=== PATIENT | female | born 1945 | race Caucasian/White ===

== ENCOUNTER → 2018-03-05 11:52 | Outpatient (CLI) | payer MEDICARE, SELFPAY ==
--- NOTE | 2018-03-05 | DI.MG.S_ITS ---
BILATERAL DIGITAL SCREENING MAMMOGRAM 3D/2D WITH CAD: 03/05/2018 CLINICAL: Routine screening. Family history of breast cancer. Comparison is made to exams dated: 04/04/2013 mammogram, 09/05/2011 mammogram, and 08/27/2010 mammogram - [facility]. There are scattered fibroglandular elements in both breasts. Current study was also evaluated with a Computer Aided Detection (CAD) system. There are mole markers on both breasts. No significant masses, calcifications, or other findings are seen in either breast. There has been no significant interval change. IMPRESSION: NEGATIVE There is no mammographic evidence of malignancy. A 1 year screening mammogram is recommended. This exam was interpreted at Station ID: [id number]. NOTE: For mammograms, a report in lay terms will be sent to the patient. Approximately 15% of breast malignancies will not be visualized mammographically. In the management of a palpable breast mass, a negative mammogram must not discourage biopsy of a clinically suspicious lesion. Electronically Signed By: Erick dhillon/[email or web address]:03/05/2018 18:37:34 letter sent: Normal Exam ACR BI-RADS Category 1: Negative 3341F
== END ==
PROVIDERS: Visit Provider Physician Assistant
DX: Z12.31 Encounter for screening mammogram for malignant neoplasm of breast (principal); Z80.3 Family history of malignant neoplasm of breast
CPT/HCPCS: 77063; 77067

== ENCOUNTER 2018-12-11 11:33 | Emergency (ER) | payer MEDICARE, SELFPAY ==
[2018-12-11 11:40] VITALS: BP 175/103; PULSE 66; RESP 18; O2SAT 98; BMI 35.5
--- NOTE | 2018-12-11 12:09 | PC.NURSE ---
Negative Ct scan two days ago. Headache and dizziness worse today.
--- NOTE | 2018-12-11 13:05 | DI.CT.S_ITS ---
PROCEDURE: CT HEAD/BRAIN WO CON INDICATIONS: glf with loc 3 days ago TECHNIQUE: Noncontrast 4.5 mm thick angled axial sections acquired from the foramen magnum to the vertex, with coronal and sagittal reformats. For radiation dose reduction, the following was used: automated exposure control, adjustment of mA and/or kV according to patient size. COMPARISON: None. FINDINGS: Image quality: Excellent. CSF spaces: Basal cisterns are patent. No extra-axial fluid collections. The ventricles are symmetric in size and shape. Brain: No intracranial bleeds or masses. There is cerebral volume loss for age, with resultant ventricular and sulcal prominence. There are periventricular and deep white matter chronic small vessel ischemic changes. Bilateral dilated perivascular spaces, right greater than left. The There is intracranial internal carotid artery atherosclerosis. Skull and face: Small right parietal subgaleal hematoma. Calvarium and visualized facial bones appear intact, without suspicious lesions. Sinuses: Visualized sinuses and mastoids are clear. IMPRESSION: 1. 1. Age related volume loss and mild small vessel ischemic change. 2. No evidence acute stroke, hemorrhage, or mass. Dictated by: Lux Zamora M.D. on 12/11/2018 at 13:10 Approved by: Lux Zamora M.D. on 12/11/2018 at 13:12
--- NOTE | 2018-12-11 13:10 | ED.HEATRA ---
HPI - Head Injury <BOBBY Johnson - Last Filed: 12/11/18 17:59> General Chief complaint: Head Injury Stated complaint: head injury x3 days Time Seen by Provider: 12/11/18 12:40 Source: patient and family Mode of arrival: ambulatory Limitations: no limitations History of Present Illness HPI Narrative: The patient is a 73-year-old female nonsmoker with history of left foot surgery who presents with a chief complaint of a head injury 2 days ago. She states she tripped while going down the stairs, landed mostly on her shoulder but then her head hit cement. She states that she fell down 3-4 stairs. She was accompanied by her son and [id number] when this happened. Her [id number] presents to the emergency department with her today. She states that she was unconscious for 4-5 minutes. She was evaluated at an outside facility, she states she was in a neck brace received a head CT as well as a neck CT. She states everything came back normal. She states she was feeling okay yesterday, but today she complains of severe headache, dizziness, nausea. She is concerned that she might have a small head bleed. She denies any prescription blood thinners, but admits to taking 1 aspirin full strength per day. She states she held yesterday and today. She states she was given a prescription of Zofran, but did not take any at home. Last dose of Tylenol 10:30 a.m.. A modified trauma was activated. Related Data Home Medications Medication Instructions Recorded Confirmed Probiotic 1 cap PO DIRECTED 12/11/18 12/11/18 aspirin 325 mg PO DAILY 12/11/18 12/11/18 clonazepam 1 mg PO BEDTIME 12/11/18 12/11/18 loperamide 10 mg PO DAILY 12/11/18 12/11/18 ondansetron 4 mg PO TID PRN 12/11/18 12/11/18 ropinirole 0.5 mg PO BEDTIME 12/11/18 12/11/18 Allergies Allergy/AdvReac Type Severity Reaction Status Date / Time oxycodone [From OxyContin] Allergy Verified 12/11/18 11:40 Review of Systems <BOBBY Johnson - Last Filed: 12/11/18 17:59> Review of Systems Narrative: GENERAL: Denies chills, fatigue, malaise, fever, sweats. HEENT: Denies sinus pain, ear pain, sore throat, difficulty swallowing, dizziness. RESPIRATORY: Denies dyspnea, cough, wheezing, hemoptysis, sputum. CARDIOVASCULAR: Denies chest pain, palpitations, orthopnea, edema, GASTROINTESTINAL: Denies nausea, vomiting, abdominal pain, diarrhea, constipation, melena. : Denies dysuria, frequency, incontinence, hematuria, urinary retention. MUSCULOSKELETAL: denies weakness, joint pain, or bony pain SKIN: See HPI NEUROLOGIC: See HPI. PSYCHIATRIC: No concerning psychosocial issues. 12 point review of systems is negative except for those stated above Exam <REESE Johnson-BC - Last Filed: 12/11/18 17:59> Narrative Exam Narrative: GENERAL: This is a well-nourished, well-developed patient, in no acute distress HEAD: Atraumatic. Normocephalic. No temporal or scalp tenderness. EYES: Pupils equal round and reactive. Extraocular motions intact. No scleral icterus. No injection or drainage. ENT: Nose without bleeding, purulent drainage or septal hematoma. Throat without erythema, tonsillar hypertrophy or exudate. Uvula midline. Airway patent. NECK: Trachea midline. No JVD or lymphadenopathy. Supple, nontender, no meningeal signs. CARDIOVASCULAR: Regular rate and rhythm without murmurs, gallops, or rubs. RESPIRATORY: Clear to auscultation. Breath sounds equal bilaterally. No wheezes, rales, or rhonchi. GASTROINTESTINAL: Abdomen soft, non-tender, nondistended. No hepato-splenomegaly, or palpable masses. No guarding. EXTREMITIES: Pain to palpation of right knee, pain to palpation left ankle. BACK: Nontender without deformity or crepitance. No flank tenderness. No pain to CT or L-spine palpation. NEURO: AOx3. Strength is equal upper and lower extremities bilaterally. Stable gait. Ambulates steadily with walker. SKIN: Abrasion noted on back of head. Initial Vital Signs Initial Vital Signs: Vital Signs Pulse Rate 66 12/11/18 11:40 Respiratory Rate 18 12/11/18 11:40 Blood Pressure 175/103 H 12/11/18 11:40 Pulse Oximetry 98 12/11/18 11:40 <Angela Stanley DO - Last Filed: 12/11/18 19:20> Initial Vital Signs Initial Vital Signs: Vital Signs Pulse Rate 66 12/11/18 11:40 Respiratory Rate 18 12/11/18 11:40 Blood Pressure 175/103 H 12/11/18 11:40 Pulse Oximetry 98 12/11/18 11:40 Scores <BOBBY Johnson - Last Filed: 12/11/18 17:59> GCS Luke coma scale eye opening: Spontaneous [employer] coma scale verbal response: Orientated [employer] coma scale motor response: Obey commands Luke coma scale total score: 15 Nexus Score for C-Spine Focal Neurologic deficit present: No Midline spinal tenderness present: No Altered level of conciousness present: No Intoxication present: No Distracting Injury Present: No Nexus Criteria for C-spine: 0 Course <BOBBY Johnson - Last Filed: 12/11/18 17:59> Orders Ordered: ED Orders 12/11/18 13:05 CT head/brain wo con Stat Discontinued Medications Acetaminophen (Tylenol) 975 mg PO NOW ONE Stop: 12/11/18 14:19 Last Admin: 12/11/18 14:51 Dose: 975 mg Documented by: LILLIE Ondansetron HCl (Zofran Odt) 4 mg SL NOW ONE Stop: 12/11/18 12:57 Last Admin: 12/11/18 13:13 Dose: 4 mg Documented by: LILLIE Vital Signs Vital signs: Vital Signs - 8 hr 12/11/18 11:40 12/11/18 14:45 Pulse Rate 66 67 Respiratory Rate 18 16 Blood Pressure 175/103 H Blood Pressure [Right Arm] 157/93 H Pulse Oximetry 98 99 <Angela Stanley DO - Last Filed: 12/11/18 19:20> Orders Ordered: ED Orders 12/11/18 13:05 CT head/brain wo con Stat Discontinued Medications Acetaminophen (Tylenol) 975 mg PO NOW ONE Stop: 12/11/18 14:19 Last Admin: 12/11/18 14:51 Dose: 975 mg Documented by: LILLIE Ondansetron HCl (Zofran Odt) 4 mg SL NOW ONE Stop: 12/11/18 12:57 Last Admin: 12/11/18 13:13 Dose: 4 mg Documented by: MONTSERRATSELVINA Vital Signs Vital signs: Vital Signs - 8 hr 12/11/18 11:40 12/11/18 14:45 Pulse Rate 66 67 Respiratory Rate 18 16 Blood Pressure 175/103 H Blood Pressure [Right Arm] 157/93 H Pulse Oximetry 98 99 MDM - Head Injury <BOBBY Johnson - Last Filed: 12/11/18 17:59> Imaging Data CT scan - head: Radiologist's impression: Alma Godoy 73 [address] 1945 [place] [address] CT Scan Report Signed Patient: Alma Godoy LMR#: [id number] : [id number]:[id number] Age/Sex: 73 / FDate of Service: 12/11/18 Loc: ED Accession Number: [id number] Procedure: CT head/brain wo con Ordering Provider: Angela Martinez PROCEDURE: CT HEAD/BRAIN WO CON INDICATIONS: glf with loc 3 days ago TECHNIQUE: Noncontrast 4.5 mm thick angled axial sections acquired from the foramen magnum to the vertex, with coronal and sagittal reformats. For radiation dose reduction, the following was used: automated exposure control, adjustment of mA and/or kV according to patient size. COMPARISON: None. FINDINGS: Image quality: Excellent. CSF spaces: Basal cisterns are patent. No extra-axial fluid collections. The ventricles are symmetric in size and shape. Brain: No intracranial bleeds or masses. There is cerebral volume loss for age, with resultant ventricular and sulcal prominence. There are periventricular and deep white matter chronic small vessel ischemic changes. Bilateral dilated perivascular spaces, right greater than left. The There is intracranial internal carotid artery atherosclerosis. Skull and face: Small right parietal subgaleal hematoma. Calvarium and visualized facial bones appear intact, without suspicious lesions. Sinuses: Visualized sinuses and mastoids are clear. IMPRESSION: 1. 1. Age related volume loss and mild small vessel ischemic change. 2. No evidence acute stroke, hemorrhage, or mass. Dictated by: Lux Zamora M.D. on 12/11/2018 at 13:10 Approved by: Lux Zamora M.D. on 12/11/2018 at 13:12 [facility] Narrative Medical decision making narrative: The patient is a 73-year-old female who presents a few days after falling down 4 stairs. She had a significant loss of conscious, was evaluated in outside facility. I obtained records which illustrated that a head CT was done, CT of her C-spine was done with no acute findings. The patient presents with continued concussion symptoms after she felt better yesterday. I discussed at length the need of brain rest, not playing game, not watching game shows etc. Discussed at length the importance of following up with her PCP. She was given a concussion packet. She does not take blood thinners. She declined any plain films of anything else that hurt such as her knee or her ankle. I encouraged the PCP to come back to the ER for any acute concerns such as concern of chest pain or shortness of breath. She was ambulating steadily throughout the ER with a walker as she does at home. Patient was discharged to home with family with strict instructions to follow up with her PCP and come back to the emergency department for any acute concerns. Discharge Plan Departure Patient Disposition: Home Clinical Impression: Concussion with loss of consciousness Qualifiers: Encounter type: subsequent encounter Qualified Code(s): S06.0X9D - Concussion with loss of consciousness of unspecified duration, subsequent encounter Fall down stairs Qualifiers: Encounter type: subsequent encounter Qualified Code(s): W10.8XXD - Fall (on) (from) other stairs and steps, subsequent encounter Discharge Date/Time: 12/11/18 15:06 Instructions: DI for Concussion, DI for Closed Head Injury, DI for Postconcussion Syndrome Activity Restrictions/Additional Instructions: Today your head CT came back with no acute findings. Please follow up with her PCP in the next few days. Please rest your brain, follow the precautions that we talked about such as decreasing stimulation, not doing things that make her brain work hard etc. Please come back to the emergency department for any acute concerns such as chest pain, shortness of breath, confusion etc Prescriptions: No Action clonazepam 1 mg tablet 1 mg PO BEDTIME RF: 0 ropinirole 0.5 mg tablet 0.5 mg PO BEDTIME RF: 0 ondansetron 4 mg tablet,disintegrating 4 mg PO TID PRN (Reason: Nausea) RF: 0 loperamide 2 mg Capsule 10 mg PO DAILY RF: 0 aspirin 325 mg Tablet 325 mg PO DAILY RF: 0 Probiotic 1 cap PO DIRECTED RF: 0 Referrals: Cornelius Zuniga MD [Primary Care Provider] -
[2018-12-11] MEDS: ONDANSETRON 4 MG ODT SL (13:13)
[2018-12-11 14:45] VITALS: BP 157/93; PULSE 67; RESP 16; O2SAT 99
[2018-12-11] MEDS: ACETAMINOPHEN 325 MG TABLET 975 MG PO (14:51)
== END 2018-12-11 15:06 | disposition home or self-care (01) ==
PROVIDERS: Emergency Provider Nurse Practitioner Family; PCP Internal Medicine
DX: S06.0X9A Concussion with loss of consciousness of unspecified duration, initial encounter (principal); W10.8XXA Fall (on) (from) other stairs and steps, initial encounter
CPT/HCPCS: 70450; 99282; 99284

== ENCOUNTER → 2019-03-08 13:00 | Outpatient (CLI) | payer MEDICARE, SELFPAY | PROVIDERS: PCP Internal Medicine; Visit Provider Internal Medicine | DX: Z78.0 Asymptomatic menopausal state (principal); Z87.891 Personal history of nicotine dependence | CPT/HCPCS: 77080 ==

== ENCOUNTER → 2019-11-05 16:03 | Outpatient (CLI) | payer MEDICARE, SELFPAY ==
--- NOTE | 2019-11-05 | DI.MG.S_ITS ---
BILATERAL DIGITAL SCREENING MAMMOGRAM 3D/2D WITH CAD: 11/05/2019 CLINICAL: Routine screening. Family history of breast cancer. Comparison is made to exams dated: 03/05/2018 mammogram, 04/04/2013 mammogram, and 09/05/2011 mammogram - [facility]. There are scattered fibroglandular elements in both breasts. Current study was also evaluated with a Computer Aided Detection (CAD) system. There are mole markers on both breasts. No significant masses, calcifications, or other findings are seen in either breast. There has been no significant interval change. IMPRESSION: NEGATIVE There is no mammographic evidence of malignancy. A 1 year screening mammogram is recommended. This exam was interpreted at Station ID: [id number]. NOTE: For mammograms, a report in lay terms will be sent to the patient. Approximately 15% of breast malignancies will not be visualized mammographically. In the management of a palpable breast mass, a negative mammogram must not discourage biopsy of a clinically suspicious lesion. Electronically Signed By: Rick Freeman M.D., jr/megha:11/05/2019 16:48:26 letter sent: Normal Exam ACR BI-RADS Category 1: Negative 3341F
== END ==
PROVIDERS: PCP Internal Medicine; Referring Provider Internal Medicine; Visit Provider Internal Medicine
DX: Z12.31 Encounter for screening mammogram for malignant neoplasm of breast (principal); Z80.3 Family history of malignant neoplasm of breast
CPT/HCPCS: 77063; 77067

== ENCOUNTER 2020-04-17 10:54 | Emergency (ER) | payer MEDICARE, SELFPAY ==
[2020-04-17 11:09] VITALS: BP 124/93; PULSE 83; RESP 15; TEMP 36.4; O2SAT 94; BMI 30.7
--- NOTE | 2020-04-17 11:18 | ED.NECK ---
HPI - Neck Pain/Injury <MARYANNE Juarez - Last Filed: 04/17/20 14:23> General Chief Complaint: Neck Pain/Injury Stated Complaint: cannot move neck Time Seen by Provider: 04/17/20 10:56 Mode of arrival: Ambulatory Limitations: no limitations History of Present Illness HPI Narrative: 75yo female with a history of COVID with elevated liver enzymes, and arthritis, presents to the ED for bilateral neck pain. Patient states this started about 3 days ago, has been intermittent. She states it is on both sides of her neck that extends up into her head and is worse when she rotates her head laterally. She states at times it is difficult to move her head up and down. Patient tried using a neck brace and states that it may be the issue worse. She has tried cold and warm packs. Patient denies any trauma, falls, head injury, numbness or tingling, arm weakness, chest pain, nausea, vomiting, diarrhea, vision changes, or any other concerns. Related Data Home Medications Medication Instructions Recorded Confirmed Probiotic 1 cap PO DIRECTED 12/11/18 12/11/18 aspirin 325 mg PO DAILY 12/11/18 12/11/18 clonazepam 1 mg PO BEDTIME 12/11/18 12/11/18 loperamide 10 mg PO DAILY 12/11/18 12/11/18 ondansetron 4 mg PO TID PRN 12/11/18 12/11/18 ropinirole 0.5 mg PO BEDTIME 12/11/18 12/11/18 Previous Rx's Medication Instructions Recorded cyclobenzaprine 10 mg PO TID PRN #20 tab 04/17/20 Allergies Allergy/AdvReac Type Severity Reaction Status Date / Time acetaminophen [From Tylenol] Allergy Verified 04/17/20 11:09 oxycodone [From OxyContin] Allergy Verified 04/17/20 11:09 Review of Systems <MARYANNE Juarez - Last Filed: 04/17/20 14:23> Review of Systems Narrative: REVIEW OF SYSTEMS: GENERAL: Denies fever. HENT: No head trauma. CARDIOVASCULAR: No chest pain. RESPIRATORY: No cough. GASTROINTESTINAL: No nausea or vomiting. MUSCULOSKELETAL: Complains of neck pain, see HPI. INTEGUMENTARY: No rash. NEURO: No numbness, tingling. Patient History <MARYANNE Juarez Last Filed: 04/17/20 14:23> Medical History No significant medical problems Social History Smoking Status: Unknown if ever smoked Smoking Status: Unknown if ever smoked alcohol intake frequency: holidays/special occasions only Substance Use Type: does not use Exam <MARYANNE Juarez - Last Filed: 04/17/20 14:23> Initial Vital Signs Initial Vital Signs: Vital Signs Temperature 97.6 F 04/17/20 11:09 Pulse Rate 83 04/17/20 11:09 Respiratory Rate 15 04/17/20 11:09 Blood Pressure 124/93 H 04/17/20 11:09 Pulse Oximetry 94 04/17/20 11:09 PHYSICAL EXAMINATION: GENERAL: Awake and alert, see HPI. HENT: Normocephalic, atraumatic. EYES: Symmetrical, sclera white, no periorbital swelling. CARDIOVASCULAR: Regular rate. RESPIRATORY: Normal respiratory rate, trachea midline, airway patent. No stridor, nasal flaring or accessory muscle use. MUSCULOSKELETAL: Tenderness to bilateral sternocleidomastoid especially with the insertion point along the skull, decreased lateral rotation due to pain. No tenderness to spinal tenderness, no trapezius tenderness. No erythema, bruising, or lesions. Normal gait and coordination. Equal tone and mass bilaterally. EXTREMITIES: CMS intact. SKIN: Warm, dry, soft, appropriate color for ethnicity. No lesions, rashes, or wounds. NEURO: Alert and Oriented X 3. No sensory deficits. PSYCH: Appropriate affect and mood. <Bro Cross DO - Last Filed: 04/17/20 14:27> Initial Vital Signs Initial Vital Signs: Vital Signs Temperature 97.6 F 04/17/20 11:09 Pulse Rate 83 04/17/20 11:09 Respiratory Rate 15 04/17/20 11:09 Blood Pressure 124/93 H 04/17/20 11:09 Pulse Oximetry 94 04/17/20 11:09 Course <MARYANNE Juarez - Last Filed: 04/17/20 14:23> Course Course Narrative: Patient given valium in the ED at this time. Orders Ordered: Discontinued Medications Diazepam (Diazepam 5 Mg Tablet) 5 mg PO NOW ONE Stop: 04/17/20 11:17 Last Admin: 04/17/20 11:42 Dose: 5 mg Documented by: CVANCE Vital Signs Vital signs: Vital Signs - 8 hr 04/17/20 11:09 04/17/20 11:52 Temperature 97.6 F Pulse Rate 83 Respiratory Rate 15 Blood Pressure 124/93 H 124/63 Pulse Oximetry 94 <Bro Cross DO - Last Filed: 04/17/20 14:27> Orders Ordered: Discontinued Medications Diazepam (Diazepam 5 Mg Tablet) 5 mg PO NOW ONE Stop: 04/17/20 11:17 Last Admin: 04/17/20 11:42 Dose: 5 mg Documented by: CVANCE Vital Signs Vital signs: Vital Signs - 8 hr 04/17/20 11:09 04/17/20 11:52 Temperature 97.6 F Pulse Rate 83 Respiratory Rate 15 Blood Pressure 124/93 H 124/63 Pulse Oximetry 94 MDM - Neck Pain/Injury <MARYANNE Juarez - Last Filed: 04/17/20 14:23> Medical Records Attestation: I reviewed the patient's medical records. Lab Data Attestation: I reviewed the patient's lab results. MDM Narrative Medical decision making narrative: History and examination concerning for muscle spasm given location, tenderness to palpation of the sternocleidomastoid, in worse pain with lateral rotation of head. Less concern for bony involvement given lack of spinal tenderness with palpation in lack of trauma. Patient was given a muscle relaxer to help with pain. She was encouraged to use other nonpharmacological remedies as well such as heat, stretches, and to follow up with her PCP discussed possible need of PT if she continues to have pain. Less concern for any significant neurological involvement due to lack of neurological changes, no numbness or tingling, no loss of bowel or bladder control. Patient was given strict ED return precautions for any new or worsening symptoms. She agreed to plan of care verbalized understanding. Discharge Plan Departure Patient Disposition: Home Clinical Impression: Neck muscle spasm Strain of neck muscle Qualifiers: Encounter type: initial encounter Qualified Code(s): S16.1XXA - Strain of muscle, fascia and tendon at neck level, initial encounter Instructions: DI for Neck Pain Activity Restrictions/Additional Instructions: Thank you for entrusting me with your care today. As discussed, I suspect your pain is most likely caused by muscle spasms. I prescribed you a muscle relaxer, these make you drowsy, do not drive or drink alcohol while taking these medications. Do not take other medications that make you drowsy while taking these. Continue to apply warm compresses, ice, massage, and gentle stretches to the area. Follow-up with your primary care provider in the next 1-2 weeks for further evaluation. Return emergency department for any new or worsening symptoms especially loss of vision, syncope, severe pain, loss of bowel or bladder control, or any other concern starts. Prescriptions: New cyclobenzaprine 10 mg tablet 10 mg PO TID PRN (Reason: muscle spasm) Qty: 20 RF: 0 No Action clonazepam 1 mg tablet 1 mg PO BEDTIME RF: 0 ropinirole 0.5 mg tablet 0.5 mg PO BEDTIME RF: 0 ondansetron 4 mg tablet,disintegrating 4 mg PO TID PRN (Reason: Nausea) RF: 0 loperamide 2 mg Capsule 10 mg PO DAILY RF: 0 aspirin 325 mg Tablet 325 mg PO DAILY RF: 0 Probiotic 1 cap PO DIRECTED RF: 0 Referrals: Cornelius Zuniga MD [Primary Care Provider] - <Bro Cross DO - Last Filed: 04/17/20 14:27> Cosign ED Attending Cosignature Attestation: Dr Cross Co-Sign Statement: I was available for consultation during this patient's emergency department visit. This chart is signed by myself for administrative purposes only. I did not have direct contact with this patient during this visit. They were seen independently by the APC.
[2020-04-17] MEDS: diazePAM 5 MG TABLET PO (11:42)
[2020-04-17 11:52] VITALS: BP 124/63
== END 2020-04-17 11:53 | disposition home or self-care (01) ==
PROVIDERS: Emergency Provider Nurse Practitioner; PCP Internal Medicine
DX: M62.838 Other muscle spasm (principal); S16.1XXA Strain of muscle, fascia and tendon at neck level, initial encounter; Z79.82 Long term (current) use of aspirin
CPT/HCPCS: 99281; 99283

== ENCOUNTER 2020-04-29 19:32 | Emergency (ER) | payer MEDICARE, SELFPAY ==
[2020-04-29 19:37] VITALS: BP 132/94; PULSE 90; RESP 20; TEMP 36.6; O2SAT 97
--- NOTE | 2020-04-29 19:44 | DI.RAD.S_ITS ---
PROCEDURE: XR FINGER LT MIN 2V INDICATIONS: fell and injured left 2nd finger TECHNIQUE: AP hand, 2 views of the 2nd finger(s) acquired. COMPARISON: None. FINDINGS: Bones: There is posterior dislocation of the 2nd finger at the 2nd proximal interphalangeal joint. There is a chip fracture in the dorsal aspect of the base of the 2nd middle phalanx. There is severe degenerative joint disease at the 1st carpometacarpal joint, and moderate degenerative joint disease at the triscaphe joint and the 1st metacarpophalangeal joint. Mild degenerative joint disease of the radiocarpal joint and multiple interphalangeal joints. Soft tissues: No suspicious soft tissue calcifications. IMPRESSION: Fracture dislocation of the 2nd finger at the 2nd proximal interphalangeal joint. Dictated by: Janell Srinivasan M.D. on 04/29/2020 at 20:18 Approved by: Janell Srinivasan M.D. on 04/29/2020 at 20:22
--- NOTE | 2020-04-29 21:10 | ED.UPPEXIN ---
HPI - Extremity Injury (Upper) General Chief Complaint: Extremity Injury, Upper Stated Complaint: FINGER INJURY S/P FALL Time Seen by Provider: 04/29/20 20:52 Source: patient and family Mode of arrival: Ambulatory Limitations: no limitations History of Present Illness HPI narrative: Patient here with daughter. Patient complains of left index finger pain and swelling and deformity. Patient was holding onto a rail with her left hand to prevent herself from falling. Munson pain in her left index finger. Denies any other injuries. Related Data Home Medications Medication Instructions Recorded Confirmed Probiotic 1 cap PO DIRECTED 12/11/18 12/11/18 aspirin 325 mg PO DAILY 12/11/18 12/11/18 clonazepam 1 mg PO BEDTIME 12/11/18 12/11/18 loperamide 10 mg PO DAILY 12/11/18 12/11/18 ondansetron 4 mg PO TID PRN 12/11/18 12/11/18 ropinirole 0.5 mg PO BEDTIME 12/11/18 12/11/18 Previous Rx's Medication Instructions Recorded cyclobenzaprine 10 mg PO TID PRN #20 tab 04/17/20 Allergies Allergy/AdvReac Type Severity Reaction Status Date / Time acetaminophen [From Tylenol] Allergy Verified 04/17/20 11:09 oxycodone [From OxyContin] Allergy Verified 04/17/20 11:09 Review of Systems Review of Systems Narrative: GENERAL: Denies chills, fatigue, malaise, fever, sweats. MUSCULOSKELETAL: Complains muscle or bony pain SKIN: Denies rash, skin lesions NEUROLOGIC: Denies weakness, numbness ROS Unobtainable: All systems reviewed & are unremarkable except as noted in HPI and below Patient History Medical History No significant medical problems Social History Smoking Status: Unknown if ever smoked Smoking Status: Unknown if ever smoked alcohol intake frequency: holidays/special occasions only Substance Use Type: does not use Exam Narrative Exam Narrative: GENERAL: in no distress, not toxic not dyspneic HEAD: Normocephalic. EXTREMITIES: Examination left hand warm soft and pink. There is deformity at the PIP joint of the left index finger. Sensate intact to light touch to the finger. Fingers warm soft and pink. Limited range of motion due to pain and deformity at the PIP joint NEURO: AOx4. SKIN: Warm and dry PSYCH: Not anxious, is cooperative Initial Vital Signs Initial Vital Signs: Vital Signs Temperature 97.9 F 04/29/20 19:37 Pulse Rate 90 04/29/20 19:37 Respiratory Rate 20 04/29/20 19:37 Blood Pressure 132/94 H 04/29/20 19:37 Pulse Oximetry 97 04/29/20 19:37 Procedures Orthopedic Joint Reduction Joint #1: Time Out Performed: Yes Side: left Joint Reduction Location: finger Analgesia: other (Digital block) Local Anesthesia: lidocaine 1% Amount of anesthesic used (mL): 2 Technique used: traction/counter-traction Post-reduction neuro exam: intact Post-reduction vascular: intact Post Reduction X-Ray Obtained: Yes Post Reduction X-Ray Results: reduced Splint Applied: Yes Patient Tolerated Procedure: Well Course Orders Ordered: ED Orders 04/29/20 19:44 XR finger LT min 2V Stat 04/29/20 21:09 XR finger LT min 2V Stat Reevaluation(s) Reevaluation #1: Patient tolerated digital block and reduction well. Time: 21:15 Vital Signs Vital signs: Vital Signs - 8 hr 04/29/20 19:37 04/29/20 21:51 Temperature 97.9 F Pulse Rate 90 89 Respiratory Rate 20 16 Blood Pressure 132/94 H 130/60 Pulse Oximetry 97 99 MDM - Extremity Injury (Upper) Differential Diagnosis Differential diagnosis: Likely dislocation of finger and other (Finger fracture) Imaging Data Extremity x-ray #1: Radiologist's Impression: [address] [id number] ReportSigned Patient: Alma Godoy LMR#: [id number]: [id number]:[id number]/Sex: 75 / FDate of Service: 04/29/20Loc: EDAccession Number: [id number] Procedure: XR finger LT min 2V Ordering Provider: Juan Francisco Rain MD PROCEDURE: XR FINGER LT MIN 2V INDICATIONS: fell and injured left 2nd finger TECHNIQUE: AP hand, 2 views of the 2nd finger(s) acquired. COMPARISON: None. FINDINGS: Bones: There is posterior dislocation of the 2nd finger at the 2nd proximal interphalangeal joint. There is a chip fracture in the dorsal aspect of the base of the 2nd middle phalanx. There is severe degenerative joint disease at the 1st carpometacarpal joint, and moderate degenerative joint disease at the triscaphe joint and the 1st metacarpophalangeal joint. Mild degenerative joint disease of the radiocarpal joint and multiple interphalangeal joints. Soft tissues: No suspicious soft tissue calcifications. IMPRESSION: Fracture dislocation of the 2nd finger at the 2nd proximal interphalangeal joint. Dictated by: Janell Srinivasan M.D. on 04/29/2020 at 20:18 Approved by: Janell Srinivasan M.D. on 04/29/2020 at 20:22 Extremity x-ray #2: Radiologist's Impression: [address] [id number] ReportSigned Patient: Alma Godoy LMR#: [id number]: 1945cct:[id number]/Sex: 75 / FDate of Service: 04/29/20Loc: EDAccession Number: [id number] Procedure: XR finger LT min 2V Ordering Provider: Juan Francisco Rain MD PROCEDURE: XR FINGER LT MIN 2V INDICATIONS: post reduction TECHNIQUE: AP hand, 2 views of the 2nd finger(s) acquired. COMPARISON: [facility], , XR FINGER LT MIN 2V, 04/29/2020, 19:50. FINDINGS: Bones: There is reduction of posterior dislocation of the 2nd finger at the 2nd proximal interphalangeal joint. An avulsion fracture is present at the base of the 2nd middle phalanx. No suspicious bony lesions. Soft tissues: No suspicious soft tissue calcifications. IMPRESSION: 2nd proximal interphalangeal joint dislocation is reduced. An avulsion fracture is present at the base of the 2nd middle phalanx. Dictated by: Janell Srinivasan M.D. on 04/29/2020 at 21:35 Approved by: Janell Srinivasan M.D. on 04/29/2020 at 21:37 Discharge Plan Departure Patient Disposition: Home Clinical Impression: Dislocation closed, finger Qualifiers: Encounter type: initial encounter Qualified Code(s): S63.259A - Unspecified dislocation of unspecified finger, initial encounter Finger fracture, left Qualifiers: Encounter type: initial encounter Finger: index finger Fracture type: closed Phalanx: middle Fracture alignment: nondisplaced Qualified Code(s): S62.651A - Nondisplaced fracture of middle phalanx of left index finger, initial encounter for closed fracture Instructions: DI for Finger Fracture, DI for Finger Dislocation Activity Restrictions/Additional Instructions: Return if worse or if any questions concerns or discoloration of the finger or cold sensation to the finger or any numbness. Call provided orthopedic office tomorrow for office recheck within a week. Use splint until office appointment time. May use Tylenol or ibuprofen for pain. Prescriptions: No Action clonazepam 1 mg tablet 1 mg PO BEDTIME RF: 0 ropinirole 0.5 mg tablet 0.5 mg PO BEDTIME RF: 0 ondansetron 4 mg tablet,disintegrating 4 mg PO TID PRN (Reason: Nausea) RF: 0 loperamide 2 mg Capsule 10 mg PO DAILY RF: 0 aspirin 325 mg Tablet 325 mg PO DAILY RF: 0 Probiotic 1 cap PO DIRECTED RF: 0 cyclobenzaprine 10 mg tablet 10 mg PO TID PRN (Reason: muscle spasm) Qty: 20 RF: 0 Referrals: Chiquita Caballero MD [Physician] - Cornelius Zuniga MD [Primary Care Provider] -
[2020-04-29] MEDS: LIDOCAINE 1% (PF) 4 ML (21:32)
[2020-04-29 21:51] VITALS: BP 130/60; PULSE 89; RESP 16; O2SAT 99
== END 2020-04-29 21:51 | disposition home or self-care (01) ==
PROVIDERS: Emergency Provider Emergency Medicine; PCP Internal Medicine
DX: S62.651A Nondisplaced fracture of middle phalanx of left index finger, initial encounter for closed fracture (principal); X58.XXXA Exposure to other specified factors, initial encounter
CPT/HCPCS: 26742; 29130; 73140; 99283

== ENCOUNTER → 2020-05-06 12:52 | Outpatient (CLI) | payer MEDICARE, SELFPAY ==
--- NOTE | 2020-05-06 | DI.RAD.S_ITS ---
PROCEDURE: XR CERVICAL SPINE 2V OR 3V INDICATIONS: Other spondylosis with radiculopathy, cervical region TECHNIQUE: 3 view(s) of the cervical spine were acquired. COMPARISON: None. FINDINGS: Bones: No fractures or dislocations to the C6-7 level. The lateral masses of C1 appear intact on the odontoid view. No suspicious bony lesions. There is [id number] disc space narrowing at C5-6 and C6-7. Non bridging anterior osteophytes are present. Multilevel uncovertebral arthropathy is present. Soft tissues: No prevertebral soft tissue swelling. IMPRESSION: Degenerative changes most notable at C5-6 and C6-7 as well as uncovertebral arthropathy. It is noted that C7-T1 is not included within the field of view and if this is of concern, repeat views recommended. Dictated by: Carleen Munoz M.D. on 05/06/2020 at 13:57 Approved by: Carleen Munoz M.D. on 05/06/2020 at 13:59
== END ==
PROVIDERS: PCP Internal Medicine; Referring Provider Internal Medicine; Visit Provider Internal Medicine
DX: M47.22 Other spondylosis with radiculopathy, cervical region (principal)
CPT/HCPCS: 72040

== ENCOUNTER → 2021-06-16 11:28 | Outpatient (CLI) | payer MEDICARE, SELFPAY ==
--- NOTE | 2021-06-16 | DI.RAD.S_ITS ---
PROCEDURE: XR CERVICAL SPINE 2V OR 3V INDICATIONS: Lesion of Neck TECHNIQUE: 3 view(s) of the cervical spine were acquired. COMPARISON: [facility], US, US SOFT TISSUE HEAD OR NECK, 06/09/2021, 10:13. [facility], CR, XR CERVICAL SPINE 2V OR 3V, 05/06/2020, 12:57. FINDINGS: Bones: A radiopaque marker has been placed over the right lateral neck, posterior to midline. No identifiable mass corresponds to the marker. No fractures or dislocations to the T1 level. The lateral masses of C1 appear intact on the odontoid view. No suspicious bony lesions. Advanced cervical spondylosis with prominent bilateral cervical facet arthropathy, multilevel anterior osteophytes, and multilevel uncovertebral joint osteophytes. Soft tissues: No prevertebral soft tissue swelling. IMPRESSION: Advanced cervical spondylitic change. No mass identified. Comment: Recommend CT neck with contrast if suspect a soft tissue mass. Dictated by: Lux Zamora M.D. on 06/16/2021 at 12:37 Approved by: Lux Zamora M.D. on 06/16/2021 at 12:40
== END ==
PROVIDERS: PCP Internal Medicine; Referring Provider Internal Medicine; Visit Provider Internal Medicine
DX: L98.9 Disorder of the skin and subcutaneous tissue, unspecified (principal); M47.812 Spondylosis without myelopathy or radiculopathy, cervical region
CPT/HCPCS: 72040

== ENCOUNTER → 2021-08-09 12:58 | Outpatient (CLI) | payer MEDICARE, SELFPAY ==
--- NOTE | 2021-08-09 | DI.MRI.S_ITS ---
PROCEDURE: MR HEAD/BRAIN WO/W CON INDICATIONS: Malignant (primary) neoplasm, Other amnesia TECHNIQUE: Noncontrast axial T1 spin echo, axial T2 fast spin echo, sagittal and axial FLAIR, coronal T2 fast spin echo, axial gradient echo, axial diffusion and ADC through the brain. After the administration of contrast, axial and coronal T1 spin echo with fat saturation through the brain. COMPARISON: None. FINDINGS: Image quality: This examination is limited by involuntary motion artifact. CSF spaces: Basal cisterns are patent. No extra-axial fluid collections. Ventricles are normal in size and shape. Brain: No midline shift. No intracranial bleeds or masses. No abnormal intracranial enhancement. There is cerebral volume loss for age. There is periventricular white matter chronic small vessel ischemic change. The brainstem appears normal. Diffusion-weighted images demonstrate no acute ischemic insults. No chronic ischemic insults. Normal intravascular flow voids are present. Skull and face: Calvarial marrow is normal in signal. Orbits appear normal. Note is made of bilateral lens replacements. Sinuses: Sinuses and mastoids appear clear. IMPRESSION: Unremarkable intracranial study for age, without findings of acute or subacute infarction. Note is made of age-appropriate brain parenchymal volume loss and chronic small vessel ischemic changes. No masses or abnormal enhancement can be seen. Dictated by: Nacho Valle M.D. on 08/09/2021 at 14:12 Approved by: Nacho Valle M.D. on 08/09/2021 at 14:14
== END ==
PROVIDERS: PCP Internal Medicine; Referring Provider Obstetrics & Gynecology Gynecologic Oncology; Visit Provider Obstetrics & Gynecology Gynecologic Oncology
DX: R41.3 Other amnesia (principal); C80.1 Malignant (primary) neoplasm, unspecified
CPT/HCPCS: 70553; A9579

== ENCOUNTER 2021-09-05 10:19 | Emergency (ER) | payer MEDICARE, SELFPAY ==
[2021-09-05] VITALS (14 sets, daily range): BP systolic 99–127; BP diastolic 56–71; PULSE 67–87; RESP 15–24; TEMP 36.6; O2SAT 95–99; BMI 25.8
--- NOTE | 2021-09-05 10:30 | ED.SYNCOPE ---
HPI - Syncope General Chief Complaint: Syncope Stated Complaint: syncope Time Seen by Provider: 09/05/21 10:22 Source: patient and EMS Mode of arrival: EMS Limitations: no limitations History of Present Illness HPI narrative: This is a 76-year-old female with known uterine cancer who initiated chemotherapy last week on the 02 of September. Patient states she takes medication for restless leg denies other medical issues no diabetes, hypertension dyslipidemia. Today she was sitting in her chair she felt unwell she had a syncopal episode for several minutes which her daughter witnessed. Pressure was 60 in the field and has improved to 90 with fluids and route. Patient states she has a mild headache, she denies chest pain or pressure, no shortness of breath. She has had some persistent abdominal pain particularly on the right side that is started after she initiated chemotherapy and some bilateral back cramping discomfort. She denies any vomiting but has had some nausea. She has not had any black or bloody stools but has had diarrhea intermittently. She states she does have IBS. She denies any vaginal bleeding. No dysuria, urgency frequency or hematuria. She has had orthopedic surgeries but besides having a port placed denies any thoracic or abdominal pain. Patient is allergic to oxycodone she gets very nauseated and vomits but states she can take Tylenol with codeine. Denies tobacco, alcohol or illicit. Her primary care is Dr. Burrows. She is receiving her chemotherapy treatments at [facility] and her care is at the [facility]. Related Data Home Medications Medication Instructions Recorded Confirmed Probiotic 1 cap PO DIRECTED 12/11/18 12/11/18 aspirin 325 mg tablet 325 mg PO DAILY 12/11/18 12/11/18 clonazepam 1 mg tablet 1 mg PO BEDTIME 12/11/18 12/11/18 loperamide 2 mg capsule 10 mg PO DAILY 12/11/18 12/11/18 ondansetron 4 mg disintegrating 4 mg PO TID PRN Nausea 12/11/18 12/11/18 tablet ropinirole 0.5 mg tablet 0.5 mg PO BEDTIME 12/11/18 12/11/18 Previous Rx's Medication Instructions Recorded cyclobenzaprine 10 mg tablet 10 mg PO TID PRN muscle spasm #20 04/17/20 tabs acetaminophen 300 mg-codeine 30 mg 1 tab PO Q6H PRN pain #14 tabs 09/05/21 tablet Allergies Allergy/AdvReac Type Severity Reaction Status Date / Time acetaminophen [From Tylenol] Allergy Verified 04/17/20 11:09 oxycodone [From OxyContin] Allergy Verified 04/17/20 11:09 Review of Systems Review of Systems ROS Unobtainable: All systems reviewed & are unremarkable except as noted in HPI and below Patient History Medical History No significant medical problems Social History Smoking Status: Unknown if ever smoked Smoking Status: Unknown if ever smoked alcohol intake frequency: holidays/special occasions only Substance Use Type: does not use Exam Narrative Exam Narrative: GEN: Elderly appearing female, alert and oriented x 3, patient appears to be in mild distress. HEENT: Atraumatic, pupils are equal round reactive to light, extraocular movements are intact, nares are clear. Throat is clear without any exudates, erythema, tonsillar enlargement or uvular deviation, no facial droop HEART: Regular rate and rhythm without murmur, clicks, rubs. Pulses are equal in upper and lower extremities LUNGS:Lungs clear to auscultation, no wheezes, rales, crackles, chest moves symmetrically, no tachypnea accessory muscle use. ABD:bowel sounds normal, soft, patient is tender in the lower abdomen right greater than left, nondistended, no guarding, rebound, rigidity, no masses noted, no hepatosplenomegaly :No CVA tenderness MSCL: Non-tender, no muscle atrophy, muscles strength 5/5 upper and lower extremities, full range of motion NEURO:CN 2-12 intact, sensation normal SKIN: No rash, erythema or skin changes noted Initial Vital Signs Initial Vital Signs: Vital Signs Temperature 98 F 09/05/21 10:13 Pulse Rate 70 09/05/21 10:13 Respiratory Rate 18 09/05/21 10:13 Blood Pressure 127/56 L 09/05/21 10:13 Pulse Oximetry 97 09/05/21 10:13 Oxygen Delivery Method 09/05/21 10:13 Course Orders Ordered: Discontinued Medications Acetaminophen/Codeine Phosphate (Codeine/Acetaminophen 30/300 Tablet) 1 tab PO NOW ONE Stop: 09/05/21 10:39 Last Admin: 09/05/21 10:47 Dose: 1 tab Documented By: MONTSERRAT Sodium Chloride (Normal Saline 0.9%) 1,000 mls @ 150 mls/hr IV CONT JAI Last Infusion: 09/05/21 13:44 Dose: 0 mls/hr Documented By: Admin: 09/05/21 10:48 Dose: 150 mls/hr Documented By: MONTSERRAT Vital Signs Vital signs: Vital Signs - 8 hr 09/05/21 10:13 09/05/21 10:23 09/05/21 10:31 Temperature 98 F Pulse Rate 70 67 Respiratory Rate 18 Blood Pressure 127/56 L 112/65 Pulse Oximetry 97 98 Oxygen Delivery Method Room Air 09/05/21 10:32 09/05/21 10:32 09/05/21 11:24 Temperature Pulse Rate 68 70 Respiratory Rate 20 Blood Pressure 127/56 L Pulse Oximetry 97 95 Oxygen Delivery Method 09/05/21 11:30 09/05/21 11:31 09/05/21 11:31 Temperature Pulse Rate 71 71 Respiratory Rate 20 20 Blood Pressure 110/62 Pulse Oximetry 99 99 Oxygen Delivery Method 09/05/21 11:54 09/05/21 11:54 09/05/21 12:00 Temperature Pulse Rate 73 Respiratory Rate 18 Blood Pressure 113/63 114/59 L Pulse Oximetry 97 Oxygen Delivery Method 09/05/21 12:00 09/05/21 12:30 09/05/21 12:30 Temperature Pulse Rate 70 68 Respiratory Rate 17 15 Blood Pressure 99/56 L Pulse Oximetry 98 97 Oxygen Delivery Method 09/05/21 12:53 Temperature Pulse Rate Respiratory Rate Blood Pressure 113/60 Pulse Oximetry Oxygen Delivery Method MDM - Syncope Lab Data Result diagrams: 09/05/21 10:25 09/05/21 10:25 Labs: Lab Results 09/05/21 09/05/21 09/05/21 Range/Units 10:25 10:25 10:25 WBC 4.9 (4.5-11.0) X10^3/uL RBC 3.91 L (4.0-5.2) X10^6/uL Hgb 12.5 (12.0-16.0) g/dL Hct 37.3 (36-46) % MCV 95.4 (80-100) fL MCH 31.9 (26-34) PG MCHC 33.5 (30-36) % RDW 15.9 H (11.6-14.8) % Plt Count 140 L (150-400) X10^3/uL Neut % (Auto) 81.8 H (50-75) % Lymph % (Auto) 14.6 L (25-40) % Villalba % (Auto) 1.3 L (3-14) % Eos % (Auto) 2.1 (2-4) % Baso % (Auto) 0.2 (0-2) % Neut # (Auto) 4000 (5345-4533) /uL Lymph # (Auto) 700 L (4686-8658) /uL Villalba # (Auto) 100 (0-900) /uL Eos # (Auto) 100 (0-450) /uL Baso # (Auto) 0 (0-100) /uL PT 10.7 (10.1-12.7) SECONDS INR 1.0 (0.9-1.3) APTT 22 L (26.4-36.2) SECONDS Sodium 133 L (137-145) mmol/L Potassium 4.8 (3.4-5.1) mmol/L Chloride 102 (98-107) mmol/L Carbon Dioxide 28 (22-32) mmol/L BUN 27 H (7-17) mg/dL Creatinine 0.77 (0.52-1.04) mg/dL Estimated GFR > 60 (>60) mL/min BUN/Creatinine Ratio 35.1 H (6-22) Glucose 105 (80-110) mg/dL Calcium 8.2 L (8.4-10.2) mg/dL Magnesium (1.6-2.3) mg/dL Total Bilirubin 0.7 (0.2-1.3) mg/dL AST 25 (14-36) IU/L ALT 16 (<35) IU/L Alkaline Phosphatase 49 (38-126) U/L Total Creatine Kinase 43 (30-135) U/L CK-MB (CK-2) TNP CK-MB (CK-2) Rel Index TNP Troponin I < 0.012 (0.01-0.034) ng/mL NT-Pro-B Natriuret Pep 147 (<450) pg/mL Total Protein 5.7 L (6.3-8.2) g/dL Albumin 3.1 L (3.5-5.0) g/dL Globulin 2.6 (1.7-4.1) g/dL Albumin/Globulin Ratio 1.2 (1.0-2.8) Lipase 18 L (23-300) U/L Urine Color Urine Appearance Urine pH (4.5-8.0) Ur Specific [place] (1.000-1.035) Urine Protein (Negative) Urine Glucose (UA) (Negative) g/dL Urine Ketones (NEGATIVE) Urine Occult Blood (Negative) Urine Nitrate (Negative) Urine Bilirubin (NEGATIVE) Urine Urobilinogen (0.2) E.U./dL Ur Leukocyte Esterase (NEGATIVE) Urine RBC (0-5/HPF) Urine WBC (0-5/HPF) Ur Squamous Epith Cells (0-5/HPF) Urine Bacteria (None) Ur Culture Indicated? SARS-CoV-2 (PCR) (Negative) Blood Type Antibody Screen 09/05/21 09/05/21 09/05/21 Range/Units 10:25 10:28 10:50 WBC (4.5-11.0) X10^3/uL RBC (4.0-5.2) X10^6/uL Hgb (12.0-16.0) g/dL Hct (36-46) % MCV (80-100) fL MCH (26-34) PG MCHC (30-36) % RDW (11.6-14.8) % Plt Count (150-400) X10^3/uL Neut % (Auto) (50-75) % Lymph % (Auto) (25-40) % Villalba % (Auto) (3-14) % Eos % (Auto) (2-4) % Baso % (Auto) (0-2) % Neut # (Auto) (5543-9367) /uL Lymph # (Auto) (8828-3310) /uL Villalba # (Auto) (0-900) /uL Eos # (Auto) (0-450) /uL Baso # (Auto) (0-100) /uL PT (10.1-12.7) SECONDS INR (0.9-1.3) APTT (26.4-36.2) SECONDS Sodium (137-145) mmol/L Potassium (3.4-5.1) mmol/L Chloride (98-107) mmol/L Carbon Dioxide (22-32) mmol/L BUN (7-17) mg/dL Creatinine (0.52-1.04) mg/dL Estimated GFR (>60) mL/min BUN/Creatinine Ratio (6-22) Glucose (80-110) mg/dL Calcium (8.4-10.2) mg/dL Magnesium 2.1 (1.6-2.3) mg/dL Total Bilirubin (0.2-1.3) mg/dL AST (14-36) IU/L ALT (<35) IU/L Alkaline Phosphatase (38-126) U/L Total Creatine Kinase (30-135) U/L CK-MB (CK-2) CK-MB (CK-2) Rel Index Troponin I (0.01-0.034) ng/mL NT-Pro-B Natriuret Pep (<450) pg/mL Total Protein (6.3-8.2) g/dL Albumin (3.5-5.0) g/dL Globulin (1.7-4.1) g/dL Albumin/Globulin Ratio (1.0-2.8) Lipase (23-300) U/L Urine Color Yellow Urine Appearance Clear Urine pH 7.0 (4.5-8.0) Ur Specific [place] 1.010 (1.000-1.035) Urine Protein Trace H (Negative) Urine Glucose (UA) Negative (Negative) g/dL Urine Ketones Negative (NEGATIVE) Urine Occult Blood Trace-intact (Negative) Urine Nitrate Negative (Negative) Urine Bilirubin Negative (NEGATIVE) Urine Urobilinogen 0.2 (0.2) E.U./dL Ur Leukocyte Esterase 1+ H (NEGATIVE) Urine RBC 0-1/hpf (0-5/HPF) Urine WBC 5-10/hpf H (0-5/HPF) Ur Squamous Epith Cells 10-30 /hpf H (0-5/HPF) Urine Bacteria Moderate (10-30) H (None) Ur Culture Indicated? Cult not indicated SARS-CoV-2 (PCR) Negative (Negative) Blood Type Antibody Screen 09/05/21 09/05/21 Range/Units 11:35 12:44 WBC (4.5-11.0) X10^3/uL RBC (4.0-5.2) X10^6/uL Hgb (12.0-16.0) g/dL Hct (36-46) % MCV (80-100) fL MCH (26-34) PG MCHC (30-36) % RDW (11.6-14.8) % Plt Count (150-400) X10^3/uL Neut % (Auto) (50-75) % Lymph % (Auto) (25-40) % Villalba % (Auto) (3-14) % Eos % (Auto) (2-4) % Baso % (Auto) (0-2) % Neut # (Auto) (0507-9508) /uL Lymph # (Auto) (5406-5854) /uL Villalba # (Auto) (0-900) /uL Eos # (Auto) (0-450) /uL Baso # (Auto) (0-100) /uL PT (10.1-12.7) SECONDS INR (0.9-1.3) APTT (26.4-36.2) SECONDS Sodium (137-145) mmol/L Potassium (3.4-5.1) mmol/L Chloride (98-107) mmol/L Carbon Dioxide (22-32) mmol/L BUN (7-17) mg/dL Creatinine (0.52-1.04) mg/dL Estimated GFR (>60) mL/min BUN/Creatinine Ratio (6-22) Glucose (80-110) mg/dL Calcium (8.4-10.2) mg/dL Magnesium (1.6-2.3) mg/dL Total Bilirubin (0.2-1.3) mg/dL AST (14-36) IU/L ALT (<35) IU/L Alkaline Phosphatase (38-126) U/L Total Creatine Kinase (30-135) U/L CK-MB (CK-2) CK-MB (CK-2) Rel Index Troponin I 0.016 (0.01-0.034) ng/mL NT-Pro-B Natriuret Pep (<450) pg/mL Total Protein (6.3-8.2) g/dL Albumin (3.5-5.0) g/dL Globulin (1.7-4.1) g/dL Albumin/Globulin Ratio (1.0-2.8) Lipase (23-300) U/L Urine Color Urine Appearance Urine pH (4.5-8.0) Ur Specific [place] (1.000-1.035) Urine Protein (Negative) Urine Glucose (UA) (Negative) g/dL Urine Ketones (NEGATIVE) Urine Occult Blood (Negative) Urine Nitrate (Negative) Urine Bilirubin (NEGATIVE) Urine Urobilinogen (0.2) E.U./dL Ur Leukocyte Esterase (NEGATIVE) Urine RBC (0-5/HPF) Urine WBC (0-5/HPF) Ur Squamous Epith Cells (0-5/HPF) Urine Bacteria (None) Ur Culture Indicated? SARS-CoV-2 (PCR) (Negative) Blood Type O Positive Antibody Screen Negative Urine Dip Bedside Urine Glucose Negative Bedside Urine Bilirubin - Negative Bedside Urine Ketone - Negative Urine Specific [place] 1.015 Bedside Urine Occult Blood - Negative Bedside Urine pH 6.0 Bedside Urine Protein - Negative Bedside Urine Urobilinogen 0.2 Bedside Urine Nitrite - Negative Bedside Urine Leukocytes - Negative Esterase Imaging Data Chest x-ray: Radiologist's Impression: [address] [address] XRay Report Signed Patient: Alma Godoy MR#: [id number] : 1945 Acct:[id number] Age/Sex: 76 / F Date of Service: 09/05/21 Loc: ED Accession Number: [id number] ?? Procedure: XR chest 1V Ordering Provider: Angela Stanley D.O. PROCEDURE:? XR CHEST 1V ? INDICATIONS:? syncope, abd pain ? TECHNIQUE:? One view of the chest was acquired.? ? COMPARISON:? [facility], CT, CT ABDOMEN PELVIS W CON, 09/05/2021, 11:10.? [facility], CR, CHEST 2 VIEW, 09/19/2014, 11:39. ? FINDINGS:? ? Surgical changes and devices:? A right-sided chest port is seen, with the tip seen overlying the mid aspect of the superior vena cava, 4-5 cm above the cavoatrial junction. ?Cholecystectomy clips are seen.? ? Lungs and pleura:? Lungs are clear.? No pleural effusions or pneumothorax.? ? Mediastinum:? The cardiac contours are within normal limits. The aorta demonstrates calcification and tortuosity. ? Bones and chest wall:? No suspicious bony lesions.? Age-appropriate bony degenerative changes are seen.? ? Overlying soft tissues appear unremarkable.? ? ? IMPRESSION:? ? Clear lungs. ? Postoperative and degenerative changes are seen.? ? ? Dictated by: Nacho Valle M.D. on 09/05/2021 at 10:19 ? ? Approved by: Nacho Valle M.D. on 09/05/2021 at 10:20? CT scan - abdomen/pelvis: Radiologist's Impression: [address] [address] [address] Scan Report Signed Patient: Alma Godoy MR#: [id number] : 1945 Acct:[id number] Age/Sex: 76 / F Date of Service: 09/05/21 Loc: ED Accession Number: [id number] ?? Procedure: CT abdomen pelvis w con Ordering Provider: Angela Stanley D.O. PROCEDURE:? CT ABDOMEN PELVIS W CON ? INDICATIONS:? syncope, uterine cancer, abd pain ? TECHNIQUE:? After the administration of oral and IV contrast, axial sections were acquired from the lung bases to the pubic symphysis.? Coronal and sagittal reformats were performed.? For radiation dose reduction, the following was used:? automated exposure control, adjustment of mA and/or kV according to patient size. ? COMPARISON:? Chest radiograph 09/05/2021. ? FINDINGS:? Image quality:? There is artifact associated with the metallic hardware. ? Artifact from the metallic hardware is reduced by metal reconstruction algorithm.? ? Lung bases:? Unremarkable.? ? Heart:? No significant findings. ? ? ABDOMEN: Liver:? Unremarkable.? ? Gallbladder:? Removed.? ? Biliary ducts:? Intrahepatic biliary ductal dilatation is seen.? The common bile duct is dilated to 19 mm. Pancreas:? Unremarkable.? ? Spleen:? Unremarkable.? ? Adrenal Glands:? Unremarkable.? ? Kidneys and Ureters:? At the medial superior aspect of the left kidney, there is a moderate density 2.8 cm cyst. ? Stomach and Bowel:? Stomach, small bowel loops, and colon are unremarkable.? There is a moderate amount of stool seen within the colon. Peritoneum:? No abnormal intraperitoneal fluid.? No free air.? ? Ventral Wall: ? No hernia.? Abdominal Nodes:? No retroperitoneal or mesenteric adenopathy by size criteria.? Vessels:? Aorta and inferior vena cava are normal in size.? Atherosclerotic calcification is noted.? ? PELVIS: Pelvic Organs:? A 2 cm area of low density can be seen along the central uterine cavity.? No adnexal masses are seen on either side.? Bladder:? Unremarkable.? ? Pelvic Nodes: No enlarged lymph nodes.? Miscellaneous:? Enlarged right inguinal lymph nodes are seen, with the largest lymph node measuring 2 x 1.2 cm. ? Bones:? Left hip arthroplasty hardware is seen.? Remote bone fragments are seen adjacent to the left greater trochanter.? At least moderate degenerative changes are seen throughout. ? ? IMPRESSION:? ? There is a moderate amount of stool seen within the colon. Please correlate with an underlying history of constipation.? ? A 2 cm region of low density can be seen along the central uterus, which is consistent with the given history of renal cancer. ? Mildly enlarged right inguinal lymph nodes are seen. ? Cholecystectomy, with abnormal biliary dilatation, with the common bile duct measuring up to 19 mm. ? If clinically appropriate, an MRCP could be considered for further evaluation (assuming that there is no contraindication to MRI). ? ? ? Incidental note is made of: Simple left renal cyst Left hip arthroplasty hardware ? Dictated by: Nacho Valle M.D. on 09/05/2021 at 10:20 ? ? Approved by: Nacho Valle M.D. on 09/05/2021 at 10:26? ECG Data Attestation: I personally reviewed and interpreted this ECG as follows: Prior ECG tracings: available for review Interpretation: Sinus rhythm, left bundle-branch block. Rate of 65, NH 160, QRS of 132, QTC 465. Patient has prior from 09/03/[address] changes appreciated. EKG 2. Shows a sinus rhythm rate of 70 NH 158 QRS of 122 and QTC of 466. Left bundle branch block which is noted on prior today with no acute ST changes in the department. MDM Narrative Medical decision making narrative: This is a 76 year old female with complaint of syncope patient was hypotensive in the field responded well to fluids. Here in the emergency department no clear acute cause is found platelets are slightly low, she is not anemic, no signs of sepsis or infection. Patient has a mildly elevated BUN but no alterations to her creatinine, sodium is 133 with otherwise normal electrolytes. Normal glucose in the field and here. Troponin is negative and 0.016 on repeat. No acute EKG changes, no chest pain or shortness of breath or other cardiac causes found no arrhythmias in the department. COVID swab is negative. Patient does have some abdominal pain, with her known history of cancer CT imaging was obtained shows some stool, renal cyst which is shared with the family but likely already being monitored by her oncology team and changes to the uterus. Patient continues to be stable the department she has ambulated multiple times without issue. Discharged home with return precautions. She has noted she has been quite constipated so will add a stool softener and she has been had significant improvement of her pain with Tylenol 3 so was given short-term prescription for this. Discharge Plan Departure Patient Disposition: Home Clinical Impression: Syncope, Cyst of left kidney, Common bile duct dilatation Instructions: DI for Syncope in Adults (Fainting) Activity Restrictions/Additional Instructions: Follow-up with your physician for recheck. I did not find a clear cause for your episode of passing out today. Your blood pressure was quite low in the field with EMS but significantly improved with fluids. Your labs, EKG and imaging today did not show a clear cause your imaging does show a renal cyst your oncology team is likely aware of this but please share this information, they also found changes that are not unexpected at the uterus. Make sure to continue to hydrate regularly at home. You may take Tylenol with codeine every 6-8 hours as needed. This medication can make you sleepy do not drive, perform hazardous activities or make any major decisions while taking it. This medication will make you constipated please take a stool softener such as Colace once to twice daily until stools are soft and regular. Prescription sent to [facility] in [place]. Please return for fevers, passing out, severe headaches, new chest pain, shortness of breath, persistent vomiting, black or bloody stools or other new or concerning symptoms. Prescriptions: New acetaminophen-codeine 300-30 mg tablet 1 tab PO Q6H PRN (Reason: pain) Qty: 14 0RF No Action clonazepam 1 mg tablet 1 mg PO BEDTIME ropinirole 0.5 mg tablet 0.5 mg PO BEDTIME ondansetron 4 mg tablet,disintegrating 4 mg PO TID PRN (Reason: Nausea) loperamide 2 mg Capsule 10 mg PO DAILY aspirin 325 mg Tablet 325 mg PO DAILY Probiotic 1 cap PO DIRECTED cyclobenzaprine 10 mg tablet 10 mg PO TID PRN (Reason: muscle spasm) Qty: 20 0RF Referrals: Victor Hugo Burrows MD [Primary Care Provider] - Visit Report Forms: Patient Portal/API
--- NOTE | 2021-09-05 10:36 | DI.RAD.S_ITS ---
PROCEDURE: XR CHEST 1V INDICATIONS: syncope, abd pain TECHNIQUE: One view of the chest was acquired. COMPARISON: [facility], CT, CT ABDOMEN PELVIS W CON, 09/05/2021, 11:10. [facility], CR, CHEST 2 VIEW, 09/19/2014, 11:39. FINDINGS: Surgical changes and devices: A right-sided chest port is seen, with the tip seen overlying the mid aspect of the superior vena cava, 4-5 cm above the cavoatrial junction. Cholecystectomy clips are seen. Lungs and pleura: Lungs are clear. No pleural effusions or pneumothorax. Mediastinum: The cardiac contours are within normal limits. The aorta demonstrates calcification and tortuosity. Bones and chest wall: No suspicious bony lesions. Age-appropriate bony degenerative changes are seen. Overlying soft tissues appear unremarkable. IMPRESSION: Clear lungs. Postoperative and degenerative changes are seen. Dictated by: Nacho Valle M.D. on 09/05/2021 at 10:19 Approved by: Nacho Valle M.D. on 09/05/2021 at 10:20
--- NOTE | 2021-09-05 10:36 | DI.CT.S_ITS ---
PROCEDURE: CT ABDOMEN PELVIS W CON INDICATIONS: syncope, uterine cancer, abd pain TECHNIQUE: After the administration of oral and IV contrast, axial sections were acquired from the lung bases to the pubic symphysis. Coronal and sagittal reformats were performed. For radiation dose reduction, the following was used: automated exposure control, adjustment of mA and/or kV according to patient size. COMPARISON: Chest radiograph 09/05/2021. FINDINGS: Image quality: There is artifact associated with the metallic hardware. Artifact from the metallic hardware is reduced by metal reconstruction algorithm. Lung bases: Unremarkable. Heart: No significant findings. ABDOMEN: Liver: Unremarkable. Gallbladder: Removed. Biliary ducts: Intrahepatic biliary ductal dilatation is seen. The common bile duct is dilated to 19 mm. Pancreas: Unremarkable. Spleen: Unremarkable. Adrenal Glands: Unremarkable. Kidneys and Ureters: At the medial superior aspect of the left kidney, there is a moderate density 2.8 cm cyst. Stomach and Bowel: Stomach, small bowel loops, and colon are unremarkable. There is a moderate amount of stool seen within the colon. Peritoneum: No abnormal intraperitoneal fluid. No free air. Ventral Wall: No hernia. Abdominal Nodes: No retroperitoneal or mesenteric adenopathy by size criteria. Vessels: Aorta and inferior vena cava are normal in size. Atherosclerotic calcification is noted. PELVIS: Pelvic Organs: A 2 cm area of low density can be seen along the central uterine cavity. No adnexal masses are seen on either side. Bladder: Unremarkable. Pelvic Nodes: No enlarged lymph nodes. Miscellaneous: Enlarged right inguinal lymph nodes are seen, with the largest lymph node measuring 2 x 1.2 cm. Bones: Left hip arthroplasty hardware is seen. Remote bone fragments are seen adjacent to the left greater trochanter. At least moderate degenerative changes are seen throughout. IMPRESSION: There is a moderate amount of stool seen within the colon. Please correlate with an underlying history of constipation. A 2 cm region of low density can be seen along the central uterus, which is consistent with the given history of renal cancer. Mildly enlarged right inguinal lymph nodes are seen. Cholecystectomy, with abnormal biliary dilatation, with the common bile duct measuring up to 19 mm. If clinically appropriate, an MRCP could be considered for further evaluation (assuming that there is no contraindication to MRI). Incidental note is made of: Simple left renal cyst Left hip arthroplasty hardware Dictated by: Nacho Valle M.D. on 09/05/2021 at 10:20 Approved by: Nacho Valle M.D. on 09/05/2021 at 10:26
[2021-09-05 10:45] LABS: Prothrombin Time 10.7 SECONDS (10.1-12.7)
[2021-09-05] MEDS: CODEINE/ACETAMINOPHEN 30/300 TABLET 1 TAB PO (10:47)
[2021-09-05 10:48] LABS: Add Manual Diff / Slide Review NO; Basophils Absolute Auto 0 /uL (0-100); Basophils Percent Auto 0.2 % (0-2); Eosinophils Absolute Auto 100 /uL (0-450); Eosinophils Percent Auto 2.1 % (2-4); Hematocrit 37.3 % (36-46); Hemoglobin 12.5 g/dL (12.0-16.0); Lymphocytes Absolute Auto 700 /uL (1100-4500); Lymphocytes Percent Auto 14.6 % (25-40); Mean Corpuscular HGB Conc 33.5 % (30-36); Mean Corpuscular Hemoglobin 31.9 PG (26-34); Mean Corpuscular Volume 95.4 fL (80-100); Monocytes Absolute Auto 100 /uL (0-900); Monocytes Percent Auto 1.3 % (3-14); Neutrophils Absolute Auto 4000 /uL (1500-7000); Neutrophils Percent Auto 81.8 % (50-75); PTT Partial Thromboplastin Tim 22 SECONDS (26.4-36.2); Platelet Count 140 X10^3/uL (150-400); Red Blood Cell Count 3.91 X10^6/uL (4.0-5.2); Red Cell Distribution Width 15.9 % (11.6-14.8); White Blood Cell Count 4.9 X10^3/uL (4.5-11.0)
[2021-09-05] MEDS: SODIUM CHLORIDE 0.9% 1,000 ML 150 ML IV (10:48)
[2021-09-05 10:52] LABS: Alanine Aminotransferase 16 IU/L (<35); Albumin 3.1 g/dL (3.5-5.0); Albumin Globulin Ratio 1.2 (1.0-2.8); Alkaline Phosphatase 49 U/L (38-126); Aspartate Aminotransferase 25 IU/L (14-36); BUN Creatinine Ratio 35.1 (6-22); Bilirubin Total 0.7 mg/dL (0.2-1.3); Blood Urea Nitrogen 27 mg/dL (7-17); Calcium 8.2 mg/dL (8.4-10.2); Carbon Dioxide 28 mmol/L (22-32); Chloride 102 mmol/L (98-107); Creatine Kinase 43 U/L (30-135); Estimated Glomerular Filt Rate > 60 mL/min (>60); Globulin 2.6 g/dL (1.7-4.1); Glucose 105 mg/dL (80-110); HEMOLYSIS < 15 (0-50); Lipase 18 U/L (23-300); Potassium 4.8 mmol/L (3.4-5.1); Sodium 133 mmol/L (137-145); Total Protein 5.7 g/dL (6.3-8.2)
[2021-09-05 10:53] LABS: COVID19 -Nasal RAPID Negative (Negative)
[2021-09-05 11:03] LABS: NT-proBNP (BNP-Adult 18+) 147 pg/mL (<450); Troponin I < 0.012 ng/mL (0.01-0.034)
[2021-09-05 11:12] LABS: Appearance Urine UA CLEAR; Bilirubin Urine UA NEGATIVE (NEGATIVE); Color Urine UA YELLOW; Glucose Urine UA NEGATIVE (Negative); Ketones Urine UA NEGATIVE (NEGATIVE); Leukocyte Esterase Urine UA 1+ (NEGATIVE); Nitrite Urine UA NEGATIVE (Negative); Occult Blood Urine UA TRACE-INTACT (Negative); Protein Urine UA TRACE (Negative); Urobilinogen Urine UA 0.2 E.U./dL (0.2)
[2021-09-05 11:30] LABS: Magnesium 2.1 mg/dL (1.6-2.3)
[2021-09-05 11:38] LABS: Bacteria Urine Moderate (10-30); Culture Indicated Urine Cult Not Indicated; RBC Urine 0-1/HPF (0-5/HPF); Squamous Epithelial Cell Urine 10-30 /HPF (0-5/HPF); WBC Urine 5-10/HPF (0-5/HPF)
[2021-09-05 13:30] LABS: Troponin I 0.016 ng/mL (0.01-0.034)
== END 2021-09-05 13:49 | disposition home or self-care (01) ==
PROVIDERS: Emergency Provider Emergency Medicine; PCP Internal Medicine
DX: R55 Syncope and collapse (principal); N28.1 Cyst of kidney, acquired; K83.8 Other specified diseases of biliary tract; R10.9 Unspecified abdominal pain; Z20.822 Contact with and (suspected) exposure to COVID-19
CPT/HCPCS: 36415; 71045; 74177; 80053; 81001; 81003; 82550; 83690; 83735; 83880; 84484; 85025; 85610; 85730; 86850; 86900; 86901; 87635; 93005; 93010; 96360; 96361; 99284; 99285; C9803; Q9967

== ENCOUNTER 2021-09-08 10:48 | Emergency (ER) | payer MEDICARE, SELFPAY ==
[2021-09-08] VITALS (8 sets, daily range): BP systolic 104–132; BP diastolic 63–74; PULSE 72–89; RESP 16–24; TEMP 36.9; O2SAT 94–98; BMI 27.1
--- NOTE | 2021-09-08 11:45 | ED.GENADULT ---
HPI - General Adult General Chief complaint: Nausea/Vomiting/Diarrhea Stated complaint: severe diarrhea for a week, in chemo treatment Time Seen by Provider: 09/08/21 10:53 Source: patient Mode of arrival: Ambulatory Related Data Home Medications Medication Instructions Recorded Confirmed Probiotic 1 cap PO DIRECTED 12/11/18 12/11/18 aspirin 325 mg tablet 325 mg PO DAILY 12/11/18 12/11/18 clonazepam 1 mg tablet 1 mg PO BEDTIME 12/11/18 12/11/18 loperamide 2 mg capsule 10 mg PO DAILY 12/11/18 12/11/18 ondansetron 4 mg disintegrating 4 mg PO TID PRN Nausea 12/11/18 12/11/18 tablet ropinirole 0.5 mg tablet 0.5 mg PO BEDTIME 12/11/18 12/11/18 Previous Rx's Medication Instructions Recorded cyclobenzaprine 10 mg tablet 10 mg PO TID PRN muscle spasm #20 04/17/20 tabs acetaminophen 300 mg-codeine 30 mg 1 tab PO Q6H PRN pain #14 tabs 09/05/21 tablet Allergies Allergy/AdvReac Type Severity Reaction Status Date / Time acetaminophen [From Tylenol] Allergy Verified 09/08/21 11:02 oxycodone [From OxyContin] Allergy Verified 09/08/21 11:02 Patient History Medical History No significant medical problems Social History Smoking Status: Unknown if ever smoked Smoking Status: Unknown if ever smoked alcohol intake frequency: holidays/special occasions only Substance Use Type: does not use Exam Initial Vital Signs Initial Vital Signs: Vital Signs Temperature 98.4 F 09/08/21 11:02 Pulse Rate 89 09/08/21 11:02 Respiratory Rate 16 09/08/21 11:02 Blood Pressure 123/74 09/08/21 11:02 Pulse Oximetry 96 09/08/21 11:02 Oxygen Delivery Method 09/08/21 11:02 Course Orders Ordered: ED Orders 09/08/21 10:53 GI Panel (Film Array) Stat 09/08/21 10:55 Complete Blood Count AUTO DIFF Stat Comprehensive Metabolic Panel Stat Magnesium Stat Vital Signs Vital signs: Vital Signs - 8 hr 09/08/21 11:02 Temperature 98.4 F Pulse Rate 89 Respiratory Rate 16 Blood Pressure 123/74 Pulse Oximetry 96 Oxygen Delivery Method Room Air Medical Decision Making Lab Data Result diagrams: 09/08/21 11:35 09/08/21 11:35 Discharge Plan Departure Prescriptions: No Action clonazepam 1 mg tablet 1 mg PO BEDTIME ropinirole 0.5 mg tablet 0.5 mg PO BEDTIME ondansetron 4 mg tablet,disintegrating 4 mg PO TID PRN (Reason: Nausea) loperamide 2 mg Capsule 10 mg PO DAILY aspirin 325 mg Tablet 325 mg PO DAILY Probiotic 1 cap PO DIRECTED cyclobenzaprine 10 mg tablet 10 mg PO TID PRN (Reason: muscle spasm) Qty: 20 0RF acetaminophen-codeine 300-30 mg tablet 1 tab PO Q6H PRN (Reason: pain) Qty: 14 0RF Referrals: Victor Hugo Burrows MD [Primary Care Provider] -
[2021-09-08 11:46] LABS: Add Manual Diff / Slide Review NO; Basophils Absolute Auto 0 /uL (0-100); Basophils Percent Auto 0.7 % (0-2); Eosinophils Absolute Auto 100 /uL (0-450); Hemoglobin 12.2 g/dL (12.0-16.0); Lymphocytes Absolute Auto 900 /uL (1100-4500); Lymphocytes Percent Auto 31.8 % (25-40); Mean Corpuscular HGB Conc 33.9 % (30-36); Mean Corpuscular Hemoglobin 32.1 PG (26-34); Mean Corpuscular Volume 94.7 fL (80-100); Monocytes Absolute Auto 100 /uL (0-900); Monocytes Percent Auto 2.9 % (3-14); Neutrophils Absolute Auto 1800 /uL (1500-7000); Neutrophils Percent Auto 59.6 % (50-75); Platelet Count 134 X10^3/uL (150-400); Red Cell Distribution Width 15.7 % (11.6-14.8); White Blood Cell Count 2.9 X10^3/uL (4.5-11.0)
[2021-09-08 11:59] LABS: Alanine Aminotransferase 20 IU/L (<35); Albumin 3.6 g/dL (3.5-5.0); Albumin Globulin Ratio 1.2 (1.0-2.8); Alkaline Phosphatase 71 U/L (38-126); Aspartate Aminotransferase 25 IU/L (14-36); BUN Creatinine Ratio 15.3 (6-22); Bilirubin Total 0.6 mg/dL (0.2-1.3); Blood Urea Nitrogen 9 mg/dL (7-17); Calcium 8.5 mg/dL (8.4-10.2); Carbon Dioxide 28 mmol/L (22-32); Chloride 101 mmol/L (98-107); Estimated Glomerular Filt Rate > 60 mL/min (>60); Globulin 2.9 g/dL (1.7-4.1); Glucose 111 mg/dL (80-110); HEMOLYSIS < 15 (0-50); Magnesium 1.9 mg/dL (1.6-2.3); Potassium 4.2 mmol/L (3.4-5.1); Sodium 133 mmol/L (137-145); Total Protein 6.5 g/dL (6.3-8.2)
--- NOTE | 2021-09-08 12:24 | ED_ITS ---
HPI - General Adult General Chief complaint: Nausea/Vomiting/Diarrhea Stated complaint: severe diarrhea for a week, in chemo treatment Time Seen by Provider: 09/08/21 10:53 Source: patient Mode of arrival: Ambulatory History of Present Illness HPI narrative: 76-year-old woman with a history of metastatic ovarian cancer 1st chemotherapy he does approximately a week ago, lesion close to her bile duct with bile duct stent in place history of irritable bowel syndrome severe enough that for years she has taken 4 mg of Imodium twice a day presents with 2 weeks of dramatically worsening diarrhea and a week of fecal incontinence with explosive diarrhea. She does not describe nausea, vomiting, cough, palpitations, headache. She is extraordinarily distressed with the uncontrolled explosive diarrhea. She does note that that is pre seeded her initial dose of chemotherapy. Imodium has no longer been effective in her doctor had suggested she stop the Imodium and try colestipol which has also been ineffective. She describes the stool as being off colored, and odd yellow and very mucousy with a dramatically foul smell. She notes that she has not been on antibiotics recently. Stool sample was given to [facility] this morning that she comes into the ER for further evaluation. Related Data Home Medications Medication Instructions Recorded Confirmed Probiotic 1 cap PO DIRECTED 12/11/18 12/11/18 aspirin 325 mg tablet 325 mg PO DAILY 12/11/18 12/11/18 clonazepam 1 mg tablet 1 mg PO BEDTIME 12/11/18 12/11/18 loperamide 2 mg capsule 10 mg PO DAILY 12/11/18 12/11/18 ondansetron 4 mg disintegrating 4 mg PO TID PRN Nausea 12/11/18 12/11/18 tablet ropinirole 0.5 mg tablet 0.5 mg PO BEDTIME 12/11/18 12/11/18 Previous Rx's Medication Instructions Recorded cyclobenzaprine 10 mg tablet 10 mg PO TID PRN muscle spasm #20 04/17/20 tabs acetaminophen 300 mg-codeine 30 mg 1 tab PO Q6H PRN pain #14 tabs 09/05/21 tablet Allergies Allergy/AdvReac Type Severity Reaction Status Date / Time acetaminophen [From Tylenol] Allergy Verified 09/08/21 11:02 oxycodone [From OxyContin] Allergy Verified 09/08/21 11:02 Review of Systems Review of Systems Narrative: Remainder of complete review of systems is otherwise unremarkable except for that included in the HPI. Patient History Medical History (Updated 09/08/21 @ 13:33 by Rebecca Rankin MD) Irritable bowel syndrome Metastatic malignant neoplasm to ovary No significant medical problems Social History Smoking Status: Unknown if ever smoked Smoking Status: Unknown if ever smoked alcohol intake frequency: holidays/special occasions only Substance Use Type: does not use Exam Initial Vital Signs Initial Vital Signs: Vital Signs Temperature 98.4 F 09/08/21 11:02 Pulse Rate 89 09/08/21 11:02 Respiratory Rate 16 09/08/21 11:02 Blood Pressure 123/74 09/08/21 11:02 Pulse Oximetry 96 09/08/21 11:02 Oxygen Delivery Method 09/08/21 11:02 General: Healthy appearing, anxious with the possibility of explosive diarrhea.. Able to give a complete and coherent history. Well-nourished well-developed HEENT: Moist mucous membranes, normal sclera with reactive pupils, Neck: No JVD, supple. She has a port in the right upper chest wall. Respiratory: Lungs are clear to auscultation, no wheezing no rales no rhonchi. Full and symmetrical air movement Cardiac: Regular rate and rhythm no murmurs no bruits Abdomen: Soft, nontender, hyperactive bowel tones, no flank pain Skin: Warm and dry, no rashes Neurologic: Grossly neurologically intact with no obvious asymmetries or abnormalities Extremities: No trauma, well perfused Psych: Cooperative, appropriate insight and affect Course Orders Ordered: ED Orders 09/08/21 10:53 GI Panel (Film Array) Stat 09/08/21 11:35 Complete Blood Count AUTO DIFF Stat Comprehensive Metabolic Panel Stat Magnesium Stat Vital Signs Vital signs: Vital Signs - 8 hr 09/08/21 11:02 09/08/21 11:53 09/08/21 11:54 Temperature 98.4 F Pulse Rate 89 73 72 Respiratory Rate 16 18 20 Blood Pressure 123/74 Pulse Oximetry 96 96 95 Oxygen Delivery Method Room Air 09/08/21 11:54 09/08/21 12:00 09/08/21 12:00 Temperature Pulse Rate 75 Respiratory Rate 19 Blood Pressure 132/65 125/63 Pulse Oximetry 96 Oxygen Delivery Method 09/08/21 12:30 09/08/21 12:30 09/08/21 13:00 Temperature Pulse Rate 76 77 Respiratory Rate 22 Blood Pressure 104/73 Pulse Oximetry 98 97 Oxygen Delivery Method 09/08/21 13:01 09/08/21 13:01 Temperature Pulse Rate 76 Respiratory Rate 24 Blood Pressure 123/68 Pulse Oximetry 96 Oxygen Delivery Method Medical Decision Making Lab Data Result diagrams: 09/08/21 11:35 09/08/21 11:35 Labs: Lab Results 09/08/21 09/08/21 Range/Units 11:35 11:35 WBC 2.9 L (4.5-11.0) X10^3/uL RBC 3.80 L (4.0-5.2) X10^6/uL Hgb 12.2 (12.0-16.0) g/dL Hct 36.0 (36-46) % MCV 94.7 (80-100) fL MCH 32.1 (26-34) PG MCHC 33.9 (30-36) % RDW 15.7 H (11.6-14.8) % Plt Count 134 L (150-400) X10^3/uL Neut % (Auto) 59.6 (50-75) % Lymph % (Auto) 31.8 (25-40) % [place] % (Auto) 2.9 L (3-14) % Eos % (Auto) 5.0 H (2-4) % Baso % (Auto) 0.7 (0-2) % Neut # (Auto) 1800 (0682-7253) /uL Lymph # (Auto) 900 L (3400-4840) /uL [place] # (Auto) 100 (0-900) /uL Eos # (Auto) 100 (0-450) /uL Baso # (Auto) 0 (0-100) /uL Sodium 133 L (137-145) mmol/L Potassium 4.2 (3.4-5.1) mmol/L Chloride 101 (98-107) mmol/L Carbon Dioxide 28 (22-32) mmol/L BUN 9 (7-17) mg/dL Creatinine 0.59 (0.52-1.04) mg/dL Estimated GFR > 60 (>60) mL/min BUN/Creatinine Ratio 15.3 (6-22) Glucose 111 H (80-110) mg/dL Calcium 8.5 (8.4-10.2) mg/dL Magnesium 1.9 (1.6-2.3) mg/dL Total Bilirubin 0.6 (0.2-1.3) mg/dL AST 25 (14-36) IU/L ALT 20 (<35) IU/L Alkaline Phosphatase 71 (38-126) U/L Total Protein 6.5 (6.3-8.2) g/dL Albumin 3.6 (3.5-5.0) g/dL Globulin 2.9 (1.7-4.1) g/dL Albumin/Globulin Ratio 1.2 (1.0-2.8) MDM Narrative Medical decision making narrative: 76-year-old woman with history of chronic diarrhea now significantly worse with explosive episodes and fecal incontinence. She did leave a stool sample this morning as ordered by her primary care doctor but comes to the emergency room for further evaluation. She is not hypotensive, electrolytes are reassuring she is not able to produce a stool sample in the emergency department. At this point she would like to go home and I believe that this is safe and appropriate I did encourage them to follow-up with a phone call to her primary care doctor tomorrow for results of the stool sample as soon as possible. There is no evidence of acute abdomen, sepsis, renal failure or significant electrolyte abnormality. Questions are answered and patient is safe for home discharge Discharge Plan Departure Patient Disposition: Home Clinical Impression: Diarrhea Instructions: DI for Antibiotic -- associated Colitis -- C difficile Activity Restrictions/Additional Instructions: Thank you for coming in today I have given you information regarding Clostridium difficile. We still need to wait to see your stool sample before we actually make that diagnosis. Please contact your primary care doctor tomorrow to follow-up on the outpatient stool sample you left this morning. Your workup in the emergency department is reassuring. There is no evidence of sepsis, severe dehydration, significant electrolyte abnormalities or other reasons that you we would need to keep you in the hospital for further evaluati on today. If you find that your having changing or worsening symptoms, please feel free to return to the emergency department Prescriptions: No Action clonazepam 1 mg tablet 1 mg PO BEDTIME ropinirole 0.5 mg tablet 0.5 mg PO BEDTIME ondansetron 4 mg tablet,disintegrating 4 mg PO TID PRN (Reason: Nausea) loperamide 2 mg Capsule 10 mg PO DAILY aspirin 325 mg Tablet 325 mg PO DAILY Probiotic 1 cap PO DIRECTED cyclobenzaprine 10 mg tablet 10 mg PO TID PRN (Reason: muscle spasm) Qty: 20 0RF acetaminophen-codeine 300-30 mg tablet 1 tab PO Q6H PRN (Reason: pain) Qty: 14 0RF Referrals: Victor Hugo Burrows MD [Primary Care Provider] -
== END 2021-09-08 13:50 | disposition home or self-care (01) ==
PROVIDERS: Emergency Provider Emergency Medicine; PCP Internal Medicine
DX: R19.7 Diarrhea, unspecified (principal)
CPT/HCPCS: 36415; 80053; 83735; 85025; 99283; 99284; J1642

== ENCOUNTER → 2021-09-21 11:26 | Outpatient (CLI) | payer MEDICARE, SELFPAY ==
[2021-09-21 12:08] LABS: Add Manual Diff / Slide Review NO; Basophils Absolute Auto 0 /uL (0-100); Basophils Percent Auto 0.4 % (0-2); Eosinophils Absolute Auto 0 /uL (0-450); Eosinophils Percent Auto 0.4 % (2-4); Hematocrit 38.7 % (36-46); Hemoglobin 13.1 g/dL (12.0-16.0); Lymphocytes Absolute Auto 1000 /uL (1100-4500); Lymphocytes Percent Auto 14.5 % (25-40); Mean Corpuscular HGB Conc 33.8 % (30-36); Mean Corpuscular Hemoglobin 32.6 PG (26-34); Mean Corpuscular Volume 96.3 fL (80-100); Monocytes Absolute Auto 600 /uL (0-900); Neutrophils Absolute Auto 5400 /uL (1500-7000); Neutrophils Percent Auto 75.7 % (50-75); Platelet Count 167 X10^3/uL (150-400); Red Blood Cell Count 4.02 X10^6/uL (4.0-5.2); Red Cell Distribution Width 16.2 % (11.6-14.8); White Blood Cell Count 7.1 X10^3/uL (4.5-11.0)
[2021-09-21 12:34] LABS: Appearance Urine UA CLEAR; Bilirubin Urine UA NEGATIVE (NEGATIVE); Color Urine UA YELLOW; Glucose Urine UA NEGATIVE (Negative); Ketones Urine UA TRACE (NEGATIVE); Leukocyte Esterase Urine UA NEGATIVE (NEGATIVE); Nitrite Urine UA NEGATIVE (Negative); Occult Blood Urine UA 1+ (Negative); Protein Urine UA TRACE (Negative); Specific Gravity Urine UA 1.025 (1.000-1.035); Urobilinogen Urine UA 0.2 E.U./dL (0.2)
[2021-09-21 12:39] LABS: Alanine Aminotransferase 12 IU/L (<35); Albumin 3.7 g/dL (3.5-5.0); Albumin Globulin Ratio 1.3 (1.0-2.8); Alkaline Phosphatase 47 U/L (38-126); Aspartate Aminotransferase 22 IU/L (14-36); BUN Creatinine Ratio 19.7 (6-22); Bilirubin Total 0.6 mg/dL (0.2-1.3); Blood Urea Nitrogen 13 mg/dL (7-17); Calcium 8.8 mg/dL (8.4-10.2); Carbon Dioxide 30 mmol/L (22-32); Chloride 100 mmol/L (98-107); Estimated Glomerular Filt Rate > 60 mL/min (>60); Globulin 2.8 g/dL (1.7-4.1); Glucose 145 mg/dL (80-110); HEMOLYSIS < 15 (0-50); Potassium 4.1 mmol/L (3.4-5.1); Sodium 133 mmol/L (137-145); Total Protein 6.5 g/dL (6.3-8.2)
[2021-09-21 14:03] LABS: RBC Urine 1-5/HPF (0-5/HPF); Squamous Epithelial Cell Urine 1-5 /HPF (0-5/HPF); WBC Urine 1-5/HPF (0-5/HPF)
[2021-09-21 14:04] LABS: Bacteria Urine None Seen; Calcium Oxalate Crystals Urine Few; Culture Indicated Urine Cult Not Indicated; Hyaline Casts Urine 5-10/LPF; Mucus Urine 2+ (Negative)
== END ==
PROVIDERS: PCP Internal Medicine; Referring Provider Obstetrics & Gynecology Gynecologic Oncology; Visit Provider Obstetrics & Gynecology Gynecologic Oncology
DX: R19.7 Diarrhea, unspecified (principal); C54.1 Malignant neoplasm of endometrium; R63.8 Other symptoms and signs concerning food and fluid intake; R41.82 Altered mental status, unspecified
CPT/HCPCS: 36415; 80053; 81001; 85025